=== PATIENT | female | born 1975 | race Two or more races ===

== ENCOUNTER 2020-10-14 13:30 | Emergency (ER) | payer BC ==
[2020-10-14] MEDS ORDERED: Alum Hydrox/Mag Hydrox/Simeth 15 ML, Lidocaine 2% 5 ML PO ONE ×2 (15:08)
[2020-10-14] MEDS ORDERED: Famotidine 20 MG/2 ML SDV IVPUSH ONE (15:08)
[2020-10-14] MEDS ORDERED: Ondansetron 4 MG/2 ML SDV IVPUSH ONE (15:08)
[2020-10-14] MEDS ORDERED: Morphine 4 MG/ML Syringe IVPUSH ONE (15:08)
[2020-10-14 15:36] LABS: BLOOD UREA NITROGEN,BUN 14 mg/dL (7.0-18.0); CHLORIDE,CL 104 mmol/L (98-107); GLUCOSE RANDOM 105 mg/dL (74-106); LIPASE 71 U/L (73-393); POTASSIUM,K 3.9 mmol/L (3.5-5.1); SODIUM,NA 142 mmol/L (136-145)
[2020-10-14] MEDS ORDERED: Iopamidol 755 MG/ML 500 ML Multipack Bottle IVPUSH ONE (16:31)
--- NOTE | 2020-10-14 16:52 | CT ---
HISTORY: Epigastric pain. COMPARISON: None. TECHNIQUE: Axial images were obtained through the abdomen pelvis following 100 cc of Isovue-370 intravenous contrast. FINDINGS: Minimal dependent atelectasis. The liver, spleen, pancreas, adrenal glands and kidneys are within bowel. There is mild gallbladder wall thickening and possible pericholecystic fluid. No visible gallstones. No biliary dilation. The left ovarian cysts are noted. Fallopian tube occlusion devices present. No evidence for bowel obstruction. No ascites or lymphadenopathy. The bones are within normal. IMPRESSION: Mild gallbladder wall thickening and possible pericholecystic fluid. Consider right upper quadrant ultrasound for further evaluation. Please note that all CT scans at this facility use dose modulation, iterative reconstruction, and/or weight-based dosing when appropriate to reduce radiation dose to as low as reasonably achievable. Dictated by Glendy Griffin MD @ 10/14/2020 4:51:[address] Glendy Griffin @ Oct 14 2020 4:51PM
--- NOTE | 2020-10-14 17:14 | PCM.EKG ---
#1 Interpretation EKG Date: 10/14/20 Time: 15:55 Rhythm: NSR Rate (Beats/Min): 61 [place]: Normal P-Wave: Present QRS: Normal ST-T: Normal QT: Normal Comparison: NA - No Prior EKG EKG Interpretation Comments: Sinus Rhythm
--- NOTE | 2020-10-14 18:54 | US ---
HISTORY: Right upper quadrant abdominal pain. COMPARISON: CT 10/14/2020. FINDINGS: The liver demonstrates normal echogenicity. Visualized pancreas is within normal. Gallstones and mild gallbladder wall thickening. Small amount of pericholecystic fluid. Negative sonographic Tran`s sign. No intra or extrahepatic biliary dilation. The common duct is measured at 5.5 mm. The right kidney measures 11.5 x 4.6 x 5.2 cm. No hydronephrosis. The visualized aorta is normal in caliber. IMPRESSION: Cholelithiasis with mild gallbladder wall thickening and a small amount pericholecystic fluid. Findings may represent acute cholecystitis. No evidence for choledocholithiasis. Dictated by Glendy Griffin MD @ 10/14/2020 6:54:[address] Glendy Griffin @ Oct 14 2020 6:54PM
--- NOTE | 2020-10-14 19:10 | EDM.PDOC ---
ED HPI GENERAL MEDICAL PROBLEM - General Chief Complaint: Abdominal Pain Stated Complaint: PAIN IN CHEST Time Seen by Provider: 10/14/20 14:52 - History of Present Illness INITIAL COMMENTS - FREE TEXT/NARRATIVE: CHIEF COMPLAINT(S): Abdominal pain HISTORY OF PRESENT ILLNESS: This is a 45-year-old woman without any significant past medical history who comes to the emergency department with a chief complaint of abdominal pain. The patient states that starting today she has been experiencing a twisting type of pain located in the epigastric area that radiates to her back. She states that she has some associated nausea but no vomiting and that the pain worsens with deep breathing. She currently rates her pain as 5 out of 10. She denies any history of pancreatitis, excessive alcohol use. She denies any chest pain, shortness of breath, fevers. She has not yet tried any medication therefore there is no relieving factors. She states that she does not know if eating or any other factors exacerbate the pain. She denies any cough, runny nose, congestion, dysuria, hematuria or back pain. She denies any vaginal bleeding or vaginal discharge. She denies any diarrhea, melena, hematochezia. REVIEW OF SYSTEMS: Constitutional: Denies fever, chills. Eyes: Denies eye pain Ears, Nose, Mouth, & Throat: Denies earache Cardiovascular: Denies chest pain Respiratory: Denies shortness of breath Gastrointestinal: Positive for epigastric abdominal pain and nausea. Denies vomiting, diarrhea, hematochezia, hematemesis, bilious emesis, melena Genitourinary: Denies hematuria Skin:Denies a rash MSK: Denies joint pain Neurological: Denies blurred vision Psychiatric: Denies depression PAST MEDICAL HISTORY: As per history of present illness and as reviewed below otherwise noncontributory. SURGICAL HISTORY: As per history of present illness and as reviewed below otherwise noncontributory. LMP: Currently on her period SOCIAL HISTORY: As per history of present illness and as reviewed below otherwise noncontributory. FAMILY HISTORY: As per history of present illness and as reviewed below otherwise noncontributory. EXAMINATION OF ORGAN SYSTEMS/BODY AREAS: Constitutional: Blood pressure is 108/72, heart rate 69, respiratory rate 16 with an oxygen saturation 95% on room air. Temperature 36.6 General: Overall well-appearing woman who is in no acute distress Psychiatric: Appropriate mood and affect. Eyes: No scleral icterus or conjunctival erythema ENMT: Moist mucous membranes. No pharyngeal erythema Cardiovascular: Regular, rate, and rhythm. No gallops, murmurs, or rubs. Bilateral upper extremity pulses symmetric and intact. No peripheral edema. No JVD. Respiratory: Lungs clear to auscultation bilaterally. No wheezes, rales, or rhonchi. Gastrointestinal: Soft, nondistended, tenderness palpation epigastric and left upper quadrant. Negative Tran's and McBurney's mildly hyperactive bowel sounds. No rebound or guarding. Genitourinary: No suprapubic tenderness no CVA tenderness Musculoskeletal: Normal range of motion. Skin: No lesions or abrasions. Neurological: Alert, GCS 15 MEDICAL DECISION MAKING AND COURSE IN THE ED WITH INTERPRETATION/REVIEW OF DIAGNOSTIC STUDIES: This is a 45-year-old and without any significant past medical history who comes to the emergency department with a acute onset epigastric abdominal pain associated with nausea who has stable vital signs. At this time differential includes pancreatitis, gastritis, peptic ulcer disease. Will obtain laboratory analysis and reevaluate after GI cocktail and famotidine for relief. Also obtain a urinalysis. Laboratory: CBC is unremarkable. CMP reveals transaminitis with AST of 151, ALT of 94 otherwise unremarkable. Lipase is normal. Urinalysis was a clean catch and was negative for leukocyte esterase, negative for nitrites, and small for blood. Interpretation: Negative. On reevaluation after labs I did discuss results with the patient. At this time her pain had not improved at all therefore I did provide the patient with 4 mg of IV morphine and discussed obtaining a CT abdomen pelvis for further evaluation of this abdominal pain. She was amenable to this plan. In addition I did obtain an EKG for screening there was no acute signs of ischemia and revealed sinus rhythm. The radiological images were viewed by myself along with reading the report from the radiologist. CT abdomen pelvis with contrast reveals mild gallbladder wall thickening and possible pericholecystic fluid. Otherwise unremarkable. After imaging I did discuss results with the patient. Her pain at this time had improved slightly. She had no nausea or vomiting. I did discuss obtaining an ultrasound. She was amenable to this plan. Therefore we will obtain a right upper quadrant ultrasound. The radiological images were viewed by myself along with reading the report from the radiologist. Right upper quadrant ultrasound reveals cholelithiasis with mild gallbladder wall thickening and a small amount of pericholecystic fluid. Findings may represent acute cholecystitis. No evidence for choledocholithiasis. There are multiple gallstones. After imaging I did contact surgeon Dr. Sanz regarding the ultrasound and CT results. The patient had improved pain at this time and had no nausea. The patient is afebrile with normal white count no evidence of hyperbilirubinemia. He did offer observation admission and possible surgical intervention if the patient wanted that otherwise the patient can follow-up outpatient. I did have a discussion with the patient and significant other at bedside. She elected for outpatient follow-up. I did discuss with her that if she had any worsening pain, fever, vomiting or inability to tolerate any fluids to return to the emergency department. She is to contact the clinic for an appointment on Friday. DISPOSITION: The patient was discharged home in stable condition. The patient will follow up with Dr. Sanz on 10/17/2020 CONDITION: Fair PROCEDURES: None FINAL IMPRESSION(S)/DIAGNOSES: 1. Acute symptomatic cholelithiasis Alphonso Soni M.D. upper abdominal Pain Score (Numeric/FACES): 5 - Related Data Allergies Allergy/AdvReac Type Severity Reaction Status Date / Time No Known Allergies Allergy Verified 10/14/20 14:55 Home Meds: Home Meds . [No Known Home Meds] 10/14/20 [History] Past Medical History - Infectious Disease History Infectious Disease History: Reports: None Social & Family History - Family History Family Medical History: No Pertinent Family History - Caffeine Use Caffeine Use: Reports: None - Recreational Drug Use Recreational Drug Use: No ED ROS GENERAL - Review of Systems Review Of Systems: See Below ED EXAM, GENERAL - Physical Exam Exam: See Below Course - Vital Signs Last Recorded V/S: Last Vital Signs Temp 36.2 C 10/14/20 19:20 Pulse 58 L 10/14/20 19:20 Resp 18 10/14/20 19:20 BP 108/60 10/14/20 19:20 Pulse Ox 97 10/14/20 19:20 - Orders/Labs/Meds Labs: Laboratory Tests 10/14/20 10/14/20 10/14/20 Range/Units 14:55 14:55 14:55 WBC 7.37 (4.0-11.0) K/uL RBC 4.68 (4.30-5.90) M/uL Hgb 14.6 (12.0-16.0) g/dL Hct 41.8 (36.0-46.0) % MCV 89.3 (80.0-98.0) fL MCH 31.2 (27.0-32.0) pg MCHC 34.9 (31.0-37.0) g/dL RDW Std Deviation 42.2 (28.0-62.0) fl RDW Coeff of Barbara 13 (11.0-15.0) % Plt Count 260 (150-400) K/uL MPV 11.30 (7.40-12.00) fL Neut % (Auto) 69.2 (48.0-80.0) % Lymph % (Auto) 24.3 (16.0-40.0) % Edwards % (Auto) 5.7 (0.0-15.0) % Eos % (Auto) 0.7 (0.0-7.0) % Baso % (Auto) 0.1 (0.0-1.5) % Neut # (Auto) 5.1 (1.4-5.7) K/uL Lymph # (Auto) 1.8 (0.6-2.4) K/uL Edwards # (Auto) 0.4 (0.0-0.8) K/uL Eos # (Auto) 0.1 (0.0-0.7) K/uL Baso # (Auto) 0.0 (0.0-0.1) K/uL Nucleated RBC % 0.0 /100WBC Nucleated RBCs # 0 K/uL Sodium (136-145) mmol/L Potassium (3.5-5.1) mmol/L Chloride (98-107) mmol/L Carbon Dioxide (21.0-32.0) mmol/L BUN (7.0-18.0) mg/dL Creatinine (0.6-1.0) mg/dL Est Cr Clr Drug Dosing mL/min Estimated GFR (MDRD) ml/min Glucose (74-106) mg/dL Calcium (8.5-10.1) mg/dL Total Bilirubin (0.2-1.0) mg/dL AST (15-37) IU/L ALT (14-63) IU/L Alkaline Phosphatase (46-116) U/L Total Protein (6.4-8.2) g/dL Albumin (3.4-5.0) g/dL Globulin (2.6-4.0) g/dL Albumin/Globulin Ratio (0.9-1.6) Lipase (73-393) U/L Urine Color YELLOW Urine Appearance CLEAR Urine pH 7.0 (5.0-8.0) Ur Specific [place] 1.015 (1.001-1.035) Urine Protein NEGATIVE (NEGATIVE) mg/dL Urine Glucose (UA) NEGATIVE (NEGATIVE) mg/dL Urine Ketones NEGATIVE (NEGATIVE) mg/dL Urine Occult Blood SMALL H (NEGATIVE) Urine Nitrite NEGATIVE (NEGATIVE) Urine Bilirubin NEGATIVE (NEGATIVE) Urine Urobilinogen 0.2 (<2.0) EU/dL Ur Leukocyte Esterase NEGATIVE (NEGATIVE) Urine RBC 0-2 (0-2/HPF) Urine WBC 0-2 (0-5/HPF) Ur Epithelial Cells FEW (NONE-FEW) Urine Bacteria RARE (NEGATIVE) Urine HCG, Qual NEGATIVE (NEGATIVE) 10/14/20 Range/Units 14:55 WBC (4.0-11.0) K/uL RBC (4.30-5.90) M/uL Hgb (12.0-16.0) g/dL Hct (36.0-46.0) % MCV (80.0-98.0) fL MCH (27.0-32.0) pg MCHC (31.0-37.0) g/dL RDW Std Deviation (28.0-62.0) fl RDW Coeff of Barbara (11.0-15.0) % Plt Count (150-400) K/uL MPV (7.40-12.00) fL Neut % (Auto) (48.0-80.0) % Lymph % (Auto) (16.0-40.0) % Edwards % (Auto) (0.0-15.0) % Eos % (Auto) (0.0-7.0) % Baso % (Auto) (0.0-1.5) % Neut # (Auto) (1.4-5.7) K/uL Lymph # (Auto) (0.6-2.4) K/uL [place] # (Auto) (0.0-0.8) K/uL Eos # (Auto) (0.0-0.7) K/uL Baso # (Auto) (0.0-0.1) K/uL Nucleated RBC % /100WBC Nucleated RBCs # K/uL Sodium 142 (136-145) mmol/L Potassium 3.9 (3.5-5.1) mmol/L Chloride 104 (98-107) mmol/L Carbon Dioxide 28.0 (21.0-32.0) mmol/L BUN 14 (7.0-18.0) mg/dL Creatinine 0.7 (0.6-1.0) mg/dL Est Cr Clr Drug Dosing 82.19 mL/min Estimated GFR (MDRD) > 60.0 ml/min Glucose 105 (74-106) mg/dL Calcium 8.8 (8.5-10.1) mg/dL Total Bilirubin 0.5 (0.2-1.0) mg/dL AST 151 H (15-37) IU/L ALT 94 H (14-63) IU/L Alkaline Phosphatase 109 (46-116) U/L Total Protein 7.3 (6.4-8.2) g/dL Albumin 3.7 (3.4-5.0) g/dL Globulin 3.6 (2.6-4.0) g/dL Albumin/Globulin Ratio 1.0 (0.9-1.6) Lipase 71 L (73-393) U/L Urine Color Urine Appearance Urine pH (5.0-8.0) Ur Specific [place] (1.001-1.035) Urine Protein (NEGATIVE) mg/dL Urine Glucose (UA) (NEGATIVE) mg/dL Urine Ketones (NEGATIVE) mg/dL Urine Occult Blood (NEGATIVE) Urine Nitrite (NEGATIVE) Urine Bilirubin (NEGATIVE) Urine Urobilinogen (<2.0) EU/dL Ur Leukocyte Esterase (NEGATIVE) Urine RBC (0-2/HPF) Urine WBC (0-5/HPF) Ur Epithelial Cells (NONE-FEW) Urine Bacteria (NEGATIVE) Urine HCG, Qual (NEGATIVE) Meds: Medications Discontinued Medications Generic Name Dose Route Start Last Admin Trade Name Freq PRN Reason Stop Dose Admin Al Hydroxide/Mg Hydroxide 15 0 ml 10/14/20 15:08 10/14/20 15:32 ml/ Lidocaine HCl 5 ml PO 10/14/20 15:09 1 each ONETIME ONE Administration Famotidine 20 mg 10/14/20 15:08 10/14/20 15:32 Famotidine 20 Mg/2 Ml Sdv IVPUSH 10/14/20 15:09 20 mg ONETIME ONE Administration Iopamidol 100 ml 10/14/20 16:31 10/14/20 16:31 Iopamidol 755 Mg/Ml 500 Ml Multipack Bottle IVPUSH 10/14/20 16:32 100 ml ONETIME ONE Administration Morphine Sulfate 4 mg 10/14/20 15:08 10/14/20 15:53 Morphine 4 Mg/Ml Syringe IVPUSH 10/14/20 15:09 4 mg ONETIME ONE Administration Ondansetron HCl 4 mg 10/14/20 15:08 10/14/20 15:33 Ondansetron 4 Mg/2 Ml Sdv IVPUSH 10/14/20 15:09 4 mg ONETIME ONE Administration Departure - Departure Time of Disposition: 19:08 Disposition: Home, Self-Care 01 Condition: Fair Clinical Impression: Cholelithiasis - Discharge Information *PRESCRIPTION DRUG MONITORING PROGRAM REVIEWED*: No *COPY OF PRESCRIPTION DRUG MONITORING REPORT IN PATIENT MARGARITA: No Instructions: Cholelithiasis, [id number] Referrals: PCP,None [Primary Care Provider] - Forms: ED Department Discharge Additional Instructions: Your evaluated today on an emergent basis. At this time you do have some gallstones in your gallbladder with a small amount of fluid on the outside of the bladder without any other signs of infection. Your pain had significantly improved and your vital signs continue to remain normal. I did discuss with the surgeon regarding your case and we did offer you observation admission versus outpatient follow-up. Given that you chose outpatient follow-up he would like you to call on Friday so that you can be seen in clinic on Friday10/17/20. If you have any worsening pain, vomiting, fever please return t o the emergency department. [facility] - General Surgery Professional Building [address] [place] [address], [address] [place] [address] The patient is informed of any results of their evaluation and diagnostic workup and all questions are answered. They are given discharge instructions and return precautions. The patient is stable for discharge. The patient states they understand and agree with the plan and that they will return if their symptoms get worse or if they have any new concerns. The following information is given to patients seen in the emergency department who are being discharged to home. This information is to outline your options for follow-up care. We provide all patients seen in our emergency department with a follow-up referral. The need for follow-up, as well as the timing and circumstances, are variable depending upon the specifics of your emergency department visit. If you don't have a primary care physician on staff, we will provide you with a referral. We always advise you to contact your personal physician following an emergency department visit to inform them of the circumstance of the visit and for follow-up with them and/or the need for any referrals to a consulting specialist. The emergency department will also refer you to a specialist when appropriate. This referral assures that you have the opportunity for follow-up care with a specialist. All of these measure are taken in an effort to provide you with optimal care, which includes your follow-up. Under all circumstances we always encourage you to contact your private physician who remains a resource for coordinating your care. When calling for follow-up care, please make the office aware that this follow-up is from your recent emergency room visit. If for any reason you are refused follow-up, please contact the [facility] Emergency Department at and asked to speak to the emergency department charge nurse. Sepsis Event Note (ED) - Evaluation Sepsis Screening Result: No Definite Risk
== END 2020-10-14 19:25 | disposition home or self-care (01) ==
LOC: MW.ED 13:30
DX: K80.20 Calculus of gallbladder without cholecystitis without obstruction (principal)
CPT/HCPCS: 36415; 74177; 76705; 80053; 81001; 81025; 83690; 85025; 93005; 96374; 96375; 99284; A9270; J2270; J2405; J3490; Q9967; 99283